=== PATIENT | male | born 1975 | race Caucasian/White ===

== ENCOUNTER 2018-08-05 05:37 | Outpatient (CLI) | payer BC ==
[~2018-08-05] VITALS: Ht 180.3 cm; Wt 73.0 kg
== END 2018-08-05 11:53 | disposition home or self-care (01) ==
LOC: PREOP 05:37
PROVIDERS: ATTEND Surgery
DX: Z01.818 Encounter for other preprocedural examination (principal)

== ENCOUNTER 2018-08-12 06:50 | Day surgery (SDC) | payer BC ==
[~2018-08-12] VITALS: Ht 180.3 cm; Wt 73.0 kg
[2018-08-12] MEDS ORDERED: LACTATED RINGERS 1,000 ML IV STA (07:03)
[2018-08-12] MEDS ORDERED: PROPOFOL INJECTION 50 ML IV ONE (07:15)
[2018-08-12] MEDS ORDERED: MIDAZOLAM 2 MG/2 ML (VERSED) VIAL ONE (07:16)
[2018-08-12 07:17] VITALS: BP 136/73
--- NOTE | 2018-08-12 08:11 | Progress Note-Post Operative ---
Post-Operative Progess Note Surgeon (s)/Joint Creaser (s) Surgeon RAMAKRISHNA MURPHY DO Joint Creaser: na Pre-Operative Diagnosis family history colon cancer Post-Operative Diagnosis same, internal hemorrhoids Procedure & Operative Findings Date of Procedure 08/12/18 Procedure Performed/Findings colonoscopy Anesthesia Type per flooring salesperson Estimated Blood Loss Estimated blood loss (mL): none Specimens/Packing Specimens Removed na RAMAKRISHNA MURPHY DO August 12, 2018 08:11
--- NOTE | 2018-08-12 08:13 | Discharge Inst-Simple/Standard ---
Discharge Inst-Standard Patient Instructions/Follow Up Plan of Care/Instructions/FU: repeat colonoscopy in 5 years, any issue before then be seen at that time. Activity as Tolerated: Yes Discharge Diet: Regular Diet RAMAKRISHNA MURPHY DO August 12, 2018 08:13
[2018-08-12 08:30] VITALS: BP 132/78
--- OUTSIDE RECORDS SUMMARY | 2018-08-12 08:42 | XMS REPORT ---
Author Author STEFFEN BHAKTA Organization [employer] Address Unknown Phone Unavailable Care Team Providers Care Director Retirement Name Role Phone STEFFEN BHAKTA CP Unavailable Allergies No Known Allergies Problems No Known Problems Medications Medication Code System Code Instructions Start Date End Date Status Dosage Promethazine-Codeine [facility] [address]-50 6.25-10 MG/5ML Orally every 4- 6 hrs October 20, 2015 5 ml as needed Results No Known Results Summary Purpose [employer] Submission
--- OUTSIDE RECORDS SUMMARY | 2018-08-12 08:42 | XMS REPORT ---
Author SANTOSH Sharp [employer] Address Unknown Phone Unavailable Care Team Providers Care Biomass Boiler Operator Name Role Phone SANTOSH MURRELL CP Unavailable Allergies, Adverse Reactions, Alerts Substance Reaction Event Type N.K.D.A. Info Not Available Non Drug Allergy Problems Problem Type Condition Code Onset Dates Condition Status Assessment Encounter for immunization Z23 Active Medications No Known Medications Procedures Procedure Coding System Code Date SINGLE IMMUNIZATION ADMIN CPT-4 93297 Jan 04, 2016 FLUARIX QUAD P-FREE 3 AND UP .50 2015 CPT-4 30595 Jan 04, 2016 Results No Known Results Immunizations Vaccine Administration Date FLUARIX QUAD P-FREE 3 AND UP .50 2015Jan 04, 2016 Summary Purpose [employer] Submission
--- OUTSIDE RECORDS SUMMARY | 2018-08-12 08:42 | XMS REPORT ---
Author Author STEFFEN BHAKTA Organization [employer] Address Unknown Phone Unavailable Care Team Providers Care Personnel Specialist Name Role Phone STEFFEN BHAKTA CP Unavailable Allergies No Known Allergies Problems No Known Problems Medications Medication Code System Code Instructions Start Date End Date Status Dosage Stormchaya Annelarnoldo [facility] [address]-69 100 MG Orally Three times a day October 20, 2015 1 capsule as needed Results No Known Results Summary Purpose [employer] Submission
[2018-08-12 09:00] VITALS: BP 116/62
--- NOTE | 2018-08-12 09:00 | OPERATIVE REPORT ---
DATE OF SERVICE: 08/12/2018 PREOPERATIVE DIAGNOSIS: Family history of colon cancer. POSTOPERATIVE DIAGNOSES: Family history of colon cancer and internal hemorrhoids. PROCEDURE: Colonoscopy. SURGEON: Ramakrishna Naylor DO ANESTHESIA: Per WAXER TENDER. ESTIMATED BLOOD LOSS: None. COMPLICATIONS: None. INDICATIONS: The patient is a 43-year-old male in need of screening colonoscopy. He understands risks and benefits of procedure and wished to proceed with procedure. Consent was signed in the chart. PROCEDURE IN DETAIL: The patient was taken to the endoscopy suite, placed in left lateral recumbent position. Timeout was performed. Digital rectal exam was performed. There were no palpable polyps, masses or ulcerations. Scope was inserted into the rectum and advanced all the way to the cecum with minimal difficulty. Prep was adequate. Scope was then slowly retracted back. There were no polyps, masses or ulceration of the cecum, ascending, transverse, descending and sigmoid colon. Once in the rectum, scope was retroflexed noting no other pathology except for internal hemorrhoids. Scope was returned to its normal position and slowly withdrawn until completely removed. The patient tolerated the procedure well without any complications. He was taken to the recovery room in stable condition. RECOMMENDATIONS: The patient will need repeat colonoscopy in 5 years, any issues before that be seen at that time. Job ID: [id number] DocumentID: [id number] Dictated Date: 08/12/2018 08:16:53 Casting And Pasting Supervisor Date: 08/12/2018 09:00:10 Dictated By: RAMAKRISHNA NAYLOR DO
[2018-08-12 09:40] VITALS: BP 116/62
== END 2018-08-12 09:40 | disposition home or self-care (01) ==
LOC: ENDO 06:50
PROVIDERS: ATTEND Surgery
DX: Z12.11 Encounter for screening for malignant neoplasm of colon (principal); K64.8 Other hemorrhoids; Z80.0 Family history of malignant neoplasm of digestive organs

== ENCOUNTER 2021-07-09 19:13 | Emergency (ER) | payer BC ==
[~2021-07-09] VITALS: Ht 180.3 cm; Wt 74.8 kg
[2021-07-09 19:36] VITALS: BP 154/71
--- NOTE | 2021-07-09 19:41 | ED Upper Extremity ---
General Stated Complaint: L HAND LAC Source: patient Exam Limitations: no limitations History of Present Illness Date Seen by Provider: Jul 09, 2021 Time Seen by Provider: 19:39 Initial Comments Patient is a 46-year-old male presents ED with a laceration to his left palmar thumb. This occurred around 7:00 when cleaning dishes. States his hit a knife. Bleeding is controlled with direct pressure. Not on blood thinners. Normal active range of motion. Not up-to-date on tetanus within the past 5 years. Denies of any obvious bone deformity. Normal active range of motion. Allergies and Home Medications Allergies Coded Allergies: No Known Drug Allergies (Unverified , 08/05/18) Patient Home Medication List Home Medication List Reviewed: Yes No Active Prescriptions or Reported Meds Review of Systems Constitutional: No chills, No diaphoresis, No fever, No malaise EENTM: No no symptoms reported, No ear discharge, No hearing loss Respiratory: No cough, No dyspnea on exertion Cardiovascular: No chest pain, No edema Gastrointestinal: No abdominal pain, No diarrhea, No nausea, No vomiting Genitourinary: No decreased output, No discharge Musculoskeletal: muscle pain Skin: other (laceration) All Other Systems Reviewed Negative Unless Noted: Yes Past Fscjqcc-Acronh-Dndgiy Hx Seasonal Allergies Seasonal Allergies: No Past Medical History Surgeries: Yes (wisdom teeth) Tonsillectomy, Vasectomy Respiratory: No Currently Using CPAP: No Currently Using BIPAP: No Cardiac: No Neurological: No Sexually Transmitted Disease: No HIV/AIDS: No Genitourinary: No Gastrointestinal: No Musculoskeletal: No Endocrine: No HEENT: No Cancer: No Psychosocial: No Integumentary: No Blood Disorders: No Family Medical History Colon cancer Physical Exam Vital Signs Vital Signs - First Documented 07/09/21 19:36 Temp 36.2 Pulse 70 Resp 20 B/P (MAP) 154/71 (98) Pulse Ox 99 O2 Delivery Room Air Capillary Refill : Height, Weight, BMI Height: 5'11.00" Weight: 161lbs. 0.0oz. 73.816786lz; 22.5 BMI Method: General Appearance: WD/WN, no apparent distress HEENT: PERRL/EOMI, normal ENT inspection, TMs normal, pharynx normal Neck: non-tender, full range of motion, supple Cardiovascular: regular rate, rhythm, no edema, no gallop, no JVD Respiratory: chest non-tender, lungs clear, normal breath sounds, no respiratory distress Gastrointestinal: normal bowel sounds, non tender, soft Back: normal inspection, no CVA tenderness, no vertebral tenderness Shoulder: normal inspection, non-tender, no evidence of injury Hand: normal ROM, Left, laceration Neurologic/Psychiatric: support merchandiser II-XII nml as tested, no motor/sensory deficits, alert Skin: other (2 cm laceration left palmar thumb.) Procedures/Interventions Wound Location: Upper Extremities Other Wound Location left thumb Wound Length (cm): 2 Wound's Depth, Shape: superficial Wound Explored: clean Irrigated w/ Saline (ccs): 100 Betadine Prep?: Yes Anesthesia: 1% Lidocaine Wound Debrided: minimal Suture: Ethlion Suture Size: 5-0 Number of Sutures: 5 Layer Closure?: 1 Progress Digital block with 4 mls 1 lidocaine of left thumb. Four-way approach dorsal a pproach. massaged the area after injection. Progress/Results/Core Measures Results/Orders My Orders Orders - GAYATHRI OWEN Lidocaine 1% Inj 30 Ml (Xylocaine 1% Inj (07/09/21 19:45) Dipht,Pertuss(Acell),Tet Adult (Boostrix (07/09/21 19:45) Medications Given in ED Current Medications Medications Dose Ordered Sig/Chintan Route Start Time Stop Time Status Last Admin Dose Admin Diphtheria/ Tetanus/Acell Pertussis 0.5 ml ONCE ONCE IM 07/09/21 19:45 07/09/21 19:46 DC 07/09/21 19:48 0.5 ML Vital Signs/I&O 07/09/21 19:36 Temp 36.2 Pulse 70 Resp 20 B/P (MAP) 154/71 (98) Pulse Ox 99 O2 Delivery Room Air Departure Communication (PCP) 5 Ethilon sutures were placed to left thumb. Neurovascular intact. Normal active range of motion of the left thumb. Remove sutures in 10 days. Neosporin topical twice a day. Was given a tetanus shot. Return precaution were discussed such as redness, swelling, pain. Impression Primary Impression: Hand laceration Disposition: 01 HOME, SELF-CARE Condition: Stable Departure-Patient Inst. Decision time for Depature: 20:03 Referrals: DARIELA BECK MD (PCP/Family) Primary Care Physician Patient Instructions: Laceration Repair With Stitches ED Add. Discharge Instructions: Remove sutures in 10 days. Neosporin twice a day. Scripts No Active Prescriptions or Reported Meds GAYATHRI OWEN Jul 09, 2021 19:41
[2021-07-09] MEDS ORDERED: TETANUS,DIPTH,PERTUSS P/F (BOOSTRIX) 0.5 ML VIAL IM ONE (19:45)
[2021-07-09] MEDS ORDERED: LIDOCAINE 1% INJ 30 ML (XYLOCAINE) VIAL INJ ONE (19:45)
== END 2021-07-09 20:06 | disposition home or self-care (01) ==
LOC: EDUNIT# 19:13 → ER 19:15
DX: S61.012A Laceration without foreign body of left thumb without damage to nail, initial encounter (principal); Z23 Encounter for immunization; W26.0XXA Contact with knife, initial encounter
CPT/HCPCS: 12001; 64450; 90715

== ENCOUNTER 2021-07-19 17:44 | Emergency (ER) | payer BC ==
[2021-07-19 18:00] VITALS: BP 157/81
== END 2021-07-19 18:10 | disposition home or self-care (01) ==
LOC: EDUNIT# 17:44 → ER 17:46
DX: Z48.02 Encounter for removal of sutures (principal)

== ENCOUNTER → 2022-11-05 | Outpatient (CLI) | payer BC ==
--- NOTE | 2022-11-05 17:20 | Diagnostic Imaging Report ---
SACRUM AND COCCYX INDICATION: Coccygeal pain COMPARISON: None available. TECHNIQUE: 3 views of the sacrum and coccyx FINDINGS: No displaced fracture within the sacrum or coccyx. Sacral alar normal in appearance. SI joints are normal. Mild degenerative disc space narrowing at L5-S1. IMPRESSION: No osseous abnormality of the sacrum or coccyx. Dictated by: Dictated on workstation # [id number]
== END ==
LOC: RAD 15:37
PROVIDERS: ATTEND Family Medicine
DX: M53.3 Sacrococcygeal disorders, not elsewhere classified (principal)
CPT/HCPCS: 72220

== ENCOUNTER → 2022-12-13 | Outpatient (CLI) | payer BC ==
--- NOTE | 2022-12-13 09:11 | Diagnostic Imaging Report ---
HISTORY: Left knee pain. TECHNIQUE: 3 views left knee COMPARISON: None FINDINGS: No acute fracture or dislocation is seen in the left knee. Alignment is normal. Joint spaces are preserved. No joint effusion is seen. There is a small superior patellar enthesophyte. IMPRESSION: 1. No acute osseous abnormality is seen in the left knee. Dictated by: Dictated on workstation # [id number]
== END ==
LOC: ORTHO 08:24
PROVIDERS: ATTEND Orthopaedic Surgery
DX: M25.562 Pain in left knee (principal)
CPT/HCPCS: 73562; G0463; 99203